=== PATIENT | female | born 1995 | race Caucasian/White ===

== ENCOUNTER 2024-07-08 07:32 | Emergency (ER) | payer OTHER, SELFPAY ==
[2024-07-08 07:42] VITALS: BP 115/71
[2024-07-08 07:48] VITALS: BMI 18.7
--- NOTE | 2024-07-08 08:27 | ED.GENMED ---
History of Present Illness
General
Chief Complaint: Jaw Pain
Source: patient and spouse
Time Seen by Provider: 07/08/24 08:06
History of Present Illness
History of Present Illness:
28-year-old female presents to the emergency room complaining of 'locked jaw'. Patient has had mandibular dislocations a couple times in the past. This morning the symptoms began after yawning. No other complaints.
Phy Exam
Physical Exam
Physical Exam:
General: Awake, Alert, Oriented X3. No acute distress.
Vitals: unremarkable
Head: Atraumatic
Eyes: Pupils equal, EOMI
Mouth: Jaw lodged in the open position patient unable to close it. Lateral condyles feel anteriorly displaced.
Throat: Airway intact, no exudates
Neck: Trachea midline
Neuro: Nonfocal
Skin: Warm, dry, no rash
Extremities: pulses equal b/l, no edema
Course
Vital Signs
Initial and Last Documented VS:
Initial Vital Signs
Temp Pulse Resp BP Pulse Ox
98.4 F 79 18 115/71 99
07/08/24 07:42 07/08/24 07:42 07/08/24 07:42 07/08/24 07:42 07/08/24 07:42
Last Documented Vital Signs
Temp Pulse Resp BP Pulse Ox
98.4 F 79 18 115/71 99
07/08/24 07:42 07/08/24 07:42 07/08/24 07:42 07/08/24 07:42 07/08/24 07:42
Procedures
Joint/Fracture Reduction
Bilateral Jaw:
Indication for procedure:: b/l mandibular dislocation
Procedure completed by: myself
Consent form signed: No
If no, reason: Emergency procedure
Joint reduced: without anesthesia
Injury was: closed
Further treatement: no treatment needed
Post reduction exam: stable
MDM/Problems Addressed
MDM/Problems Addressed:
Patient presents with a mandibular dislocation. I was able to reduce the millimeter dislocation with an intraoral technique. Postreduction the patient was feeling significantly better. Stable for discharge home. Follow-up with dentist
*Pulse Oximetry
Patient hypoxic: no
*Critical Care Note
Total Time (30-74mins, 75-104mins- exclusive of procedures): Not Applicable
ED Attending Note
-
Portions of this chart may have been created with voice recognition software.� Occasional wrong word or��sound alike� substitutions may have occurred due to the inherent limitations of voice recognition software.
Discharge Plan
Departure
Patient Disposition: Home (Routine Discharge)
Date of Disposition: 07/08/24
Time of Disposition: 08:27
Patient with high blood pressure during this ER visit?: No
Condition: Good
Discharge Problem:
Closed dislocation of mandible
Instructions: Dislocated Jaw (DC)
Referrals:
NONE,* [Family Provider] -
Interventions
Interventions:
*Risk Screen - Suicide Last Done: 07/08/24 07:42
*General Assessment Last Done: 07/08/24 07:42
*Neglect/Abuse Screening Last Done: 07/08/24 07:42
ED- Fall Risk Assessment Last Done: 07/08/24 07:48
*ED COVID-19 Vaccine History Last Done: 07/08/24 07:48
ED-EENT Assessment Last Done: 07/08/24 08:02
ED- Cardiac Assessment Last Done: 07/08/24 07:48
Discharge Date and Time
Print Language: TURKISH
[2024-07-08] MEDS: MOTRIN 400 MG PO (08:33)
== END 2024-07-08 08:38 | disposition home or self-care (01) ==
LOC: EMR 07:32
PROVIDERS: EMERGENCY PHYSICIAN Emergency Medicine
DX: S03.02XA Dislocation of jaw, left side, initial encounter (principal); X58.XXXA Exposure to other specified factors, initial encounter
CPT/HCPCS: 99283; 21480